=== PATIENT | female | born 1990 | race Two or more races ===

== ENCOUNTER 2020-10-24 12:10 | Observation (INO) | payer OTHER ==
[~2020-10-24] VITALS: Ht 162.6 cm; Wt 67.1 kg
[2020-10-24 15:47] LABS: COVID AG,FIA SOURCE NASOPHARYNGEAL
[2020-10-25] MEDS ORDERED: FOLI-130 PO (10:57)
[2020-10-25] MEDS ORDERED: PREN-217 PO (10:58)
== END 2020-10-24 12:20 | disposition home or self-care (01) ==
LOC: 4S 12:10
PROVIDERS: ADMIT Obstetrics & Gynecology; ATTEND Obstetrics & Gynecology
DX: Z34.93 Encounter for supervision of normal pregnancy, unspecified, third trimester (principal); Z20.822 Contact with and (suspected) exposure to COVID-19; Z3A.36 36 weeks gestation of pregnancy
CPT/HCPCS: 87426; 99219

== ENCOUNTER 2020-10-25 10:15 | Inpatient (IN) | payer OTHER ==
[~2020-10-25] VITALS: Ht 162.6 cm; Wt 78.0 kg
[2020-10-25] MEDS ORDERED: RINGERS SOLUTION,LACTATED 1,000 ML IV ONE ×3 (10:45→14:21)
[2020-10-25] MEDS ORDERED: CITRIC ACID/SODIUM CITRATE 30 ML SOLUTION UDCUP PO ONE (10:45)
[2020-10-25] MEDS ORDERED: METOCLOPRAMIDE HCL 5 MG/ML 2 ML VIAL IVP ONE (10:45)
[2020-10-25 10:46] VITALS: BP 109/69
[2020-10-25] MEDS ORDERED: FOLI-130 PO (10:57)
[2020-10-25] MEDS ORDERED: PREN-217 PO (10:58)
[2020-10-25 11:32] LABS: BASOPHILS % (AUTO) 0.2 % (0.0-2.0); EOSINOPHILS % (AUTO) 0.4 % (1.0-6.0); HEMATOCRIT 35.5 % (36-46); HEMOGLOBIN 11.9 g/dL (12.0-16.0); LYMPHOCYTES # (AUTO) 1.5 K/uL (1.0-4.8); LYMPHOCYTES % (AUTO) 18.9 % (22.0-44.0); MEAN CORPUSCULAR HEMOGLOBIN 30.1 pg (26.0-34.0); MEAN CORPUSCULAR HGB CONC 33.5 G/dL (31.0-37.0); MEAN CORPUSCULAR VOLUME 90 fL (80-100); MONOCYTES # (AUTO) 0.5 K/uL (0.1-1.0); MONOCYTES % (AUTO) 5.7 % (2.0-9.0); NEUTROPHILS % (AUTO) 74.8 % (40.0-70.0); PLATELET COUNT (AUTO) 214 K/uL (150-450); RED BLOOD CELL COUNT(AUTO) 3.95 MIL/uL (4.00-5.20); RED CELL DISTRIBUTION WIDTH 14.2 % (11.5-14.5)
[2020-10-25] MEDS ORDERED: BUPIVACAINE HCL/DEX-WATER/PF 0.75% 2 ML AMP ITH ONE (11:50)
[2020-10-25] MEDS ORDERED: TRANEXAMIC ACID 1,000 MG/10 ML VIAL ONE (11:50)
[2020-10-25] MEDS ORDERED: SODIUM CHLORIDE 0.9% 1,000 ML ONE (11:51)
[2020-10-25] MEDS ORDERED: SODIUM CHLORIDE 0.9% 100 ML ONE (11:58)
[2020-10-25] MEDS ORDERED: ONDANSETRON HCL 4 MG/2 ML VIAL IVP ONE (12:00)
[2020-10-25] MEDS ORDERED: MORPHINE SULFATE/PF 0.5 MG/ML 10 ML AMP IVP ONE (12:00)
[2020-10-25] MEDS ORDERED: FentaNYL CITRATE PF 100 MCG/2 ML VIAL IVP ONE (12:00)
[2020-10-25] MEDS ORDERED: EPHEDrine SULFATE 50 MG/ML VIAL IM ONE (12:00)
[2020-10-25] MEDS ORDERED: OXYTOCIN 10 UNITS/ML VIAL IM ONE (12:00)
[2020-10-25] MEDS ORDERED: FentaNYL CITRATE PF 100 MCG/2 ML VIAL IVP PRN ×2 (13:15→13:45)
[2020-10-25] MEDS ORDERED: MEPERIDINE-PF 25 MG/ML VIAL IVP PRN (13:15)
[2020-10-25] MEDS ORDERED: HYDROmorphone 2 MG/ML VIAL IVP PRN (13:15)
[2020-10-25] MEDS ORDERED: GUM MASTIC/STORAX/MSAL/ALCOHOL LIQUID 0.67 ML VIAL TP ONE (13:27)
[2020-10-25] MEDS ORDERED: MORPHINE SULFATE 10 MG/ML SYRINGE IVP PRN (13:45)
[2020-10-25] MEDS ORDERED: LANOLIN 7 GM OINTMENT TP PRN (13:45)
[2020-10-25] MEDS ORDERED: DiphenhydrAMINE HCL 50 MG/ML VIAL IVP PRN (13:45)
[2020-10-25] MEDS ORDERED: NALBUPHINE HCL 10 MG/ML VIAL IVP PRN ×2 (13:45)
[2020-10-25] MEDS ORDERED: OXYTOCIN 30 UNITS/LACT RINGERS 500 ML IV ONE (13:45)
[2020-10-25] MEDS ORDERED: ONDANSETRON HCL 4 MG/2 ML VIAL IVP PRN (13:45)
[2020-10-25] MEDS ORDERED: OxyCODONE HCL/ACETAMINOPHEN 5-325 MG TABLET PO PRN (13:45)
[2020-10-25] MEDS ORDERED: NALOXONE HCL 0.4 MG/ML VIAL IVP PRN (13:45)
[2020-10-25] MEDS: RINGERS SOLUTION,LACTATED 1,000 ML IV SCH ×2 (14:23→20:46)
[2020-10-25] MEDS: ACETAMINOPHEN 1000 MG/ISO-OSM 100 ML IV SCH ×2 (15:10→22:34)
[2020-10-25] MEDS: OXYGEN THERAPY IH SCH (20:00)
[2020-10-25] MEDS ORDERED: OXYGEN THERAPY IH SCH ×2 (20:00)
[2020-10-26 06:49] LABS: BASOPHILS % (AUTO) 0.3 % (0.0-2.0); EOSINOPHILS % (AUTO) 0.3 % (1.0-6.0); HEMATOCRIT 33.4 % (36-46); HEMOGLOBIN 11.4 g/dL (12.0-16.0); LYMPHOCYTES # (AUTO) 0.9 K/uL (1.0-4.8); LYMPHOCYTES % (AUTO) 8.1 % (22.0-44.0); MEAN CORPUSCULAR HEMOGLOBIN 30.4 pg (26.0-34.0); MEAN CORPUSCULAR VOLUME 90 fL (80-100); MONOCYTES # (AUTO) 0.5 K/uL (0.1-1.0); MONOCYTES % (AUTO) 4.7 % (2.0-9.0); NEUTROPHILS # (AUTO) 9.1 K/uL (1.8-7.7); PLATELET COUNT (AUTO)-OB 211 K/uL (150-450); RED BLOOD CELL COUNT(AUTO) 3.74 MIL/uL (4.00-5.20); RED CELL DISTRIBUTION WIDTH 14.8 % (11.5-14.5)
[2020-10-26 07:02] LABS: NEUTROPHILS % (AUTO) 86.6 % (40.0-70.0)
[2020-10-26] MEDS: OXYGEN THERAPY IH SCH ×2 (08:00→20:00)
[2020-10-26] MEDS: MAGNESIUM HYDROXIDE SUSPENSION 30 ML UDCUP PO SCH ×2 (08:35→20:45)
[2020-10-26] MEDS: OxyCODONE HCL/ACETAMINOPHEN 5-325 MG TABLET PO PRN (17:17)
[2020-10-26] MEDS: IBUPROFEN 800 MG TABLET PO PRN (17:18)
[2020-10-27] MEDS: OxyCODONE HCL/ACETAMINOPHEN 5-325 MG TABLET PO PRN ×2 (06:31→13:40)
[2020-10-27] MEDS: IBUPROFEN 800 MG TABLET PO PRN ×3 (06:31→20:22)
[2020-10-27] MEDS: OXYGEN THERAPY IH SCH ×2 (08:00→20:00)
[2020-10-27] MEDS: MAGNESIUM HYDROXIDE SUSPENSION 30 ML UDCUP PO SCH ×2 (09:13→20:22)
[2020-10-28] MEDS: IBUPROFEN 800 MG TABLET PO PRN (04:03)
[2020-10-28] MEDS: MAGNESIUM HYDROXIDE SUSPENSION 30 ML UDCUP PO SCH (08:56)
[2020-10-28] MEDS: OxyCODONE HCL/ACETAMINOPHEN 5-325 MG TABLET PO PRN (08:56)
[2020-10-28] MEDS ORDERED: OXYC5 PO (09:19)
[2020-10-28] MEDS ORDERED: IBUP-2071 PO (09:19)
[2020-10-28] MEDS ORDERED: DOCU-275 PO (09:20)
== END 2020-10-28 13:15 | disposition home or self-care (01) | DRG 783 ==
LOC: 4S 10:15 → OBSVTOIN 10:15 → 4S 10-26 22:43
PROVIDERS: ADMIT Obstetrics & Gynecology; ATTEND Obstetrics & Gynecology
PROC: 10D00Z1 Extraction of Products of Conception, Low, Open Approach (ICD-10-PCS; principal; 2020-10-25)
PROC: 0UB70ZZ Excision of Bilateral Fallopian Tubes, Open Approach (ICD-10-PCS; 2020-10-25)
DX: O34.211 Maternal care for low transverse scar from previous cesarean delivery (principal); O60.14X0 Preterm labor third trimester with preterm delivery third trimester, not applicable or unspecified; Z3A.36 36 weeks gestation of pregnancy; Z37.0 Single live birth; Z30.2 Encounter for sterilization
CPT/HCPCS: 85025; 86850; 86900; 86901; 86923; 87081; 88302; 88307; 88341; 88342; J0131; J0690; J2274; J2405; J2590; J2765; J3010; J3490; J7030; J7050; J7120; 36415-L1; 36415-TC